=== PATIENT | male | born 1955 | race Caucasian/White ===

== ENCOUNTER → 2024-10-24 | Outpatient (CLI) | payer BC, SELFPAY ==
[2024-10-24 07:51] LABS: Collection Type, Urine Clean Catch
[2024-10-24 08:33] LABS: Basophils # (Auto) 0.1 Thou/mm3 (0.0-0.2); Basophils % (Auto) 1 % (0-2.5); Eosinophils # (Auto) 0.2 Thou/mm3 (0.0-0.5); Eosinophils % (Auto) 3 % (0-10); Hematocrit 44.5 % (41.0-53.0); Hemoglobin 14.6 g/dL (13.5-16.0); Immature Granulocytes % (Auto) 0 % (0-0); Immature Granulocytes Auto 0.02 Thou/mm3 (0.00-0.00); Lymphocytes # (Auto) 1.4 Thou/mm3 (1.0-4.8); Lymphocytes % (Auto) 23 % (10-50); Mean Corpuscular HGB Conc 32.8 g/dl (31.0-37.0); Mean Corpuscular Hemoglobin 29.3 pg (25.0-35.0); Mean Corpuscular Volume 89 fL (80-100); Monocytes # (Auto) 0.7 Thou/mm3 (0.0-0.8); Monocytes % (Auto) 12 % (0-12); Neutrophils # (Auto) 3.7 Thou/mm3 (1.8-7.7); Neutrophils % (Auto) 61 % (37-80); Nucleated Red Blood Cell % 0 /100 WBC (0); Platelet Count 243 Thou/mm3 (140-440); RDW Standard Deviation 45.2 fL (35.1-43.9); Red Blood Count 4.98 Miln/mm3 (4.50-5.90); White Blood Count 6.1 Thou/mm3 (3.8-10.6)
[2024-10-24 08:39] LABS: Bilirubin,Urine Negative (Negative); Blood,Urine Negative (Negative); Clarity,Urine Clear (Clear/Hazy); Color,Urine Yellow (Lt Yel-Yel); Culture Indicated,Urine Not Indicated; Glucose, Urine Negative (Negative); Hyaline Casts,Urine < 1 /hpf (0-1); Ketones,Urine Negative (Negative); Leukocyte Esterase,Urine Negative (Negative); Nitrite,Urine Negative (Negative); Protein,Urine Negative (Neg - Trace); RBC,Urine 3 /hpf (0-3); Specific Gravity,Urine 1.022 (1.001-1.035); Squamous Epithelial Cell,Urine < 1 /hpf (0-5); Urobilinogen,Urine Negative mg/dL (0.0-1.0); WBC,Urine 2 /hpf (0-5)
[2024-10-24 08:46] LABS: Creatinine MALB Rnd Ur 168 mg/dL (30-125); Microalbumin Creat Ratio 11 mg/gCrea (<30); Microalbumin, Random Urine 18 mg/L (0-300)
[2024-10-24 08:50] LABS: Vitamin D 25 Hydroxy Total 15.9 ng/mL (7.3-40.2)
[2024-10-24 08:58] LABS: Alanine Aminotransferase 17 U/L (10-49); Albumin, Serum 4.5 gm/dL (3.4-4.8); Alkaline Phosphatase 111 U/L (46-116); Anion Gap 9 (7-16); Aspartate Amino Transferase 12 U/L (0-34); BUN/Creatinine Ratio 16 Ratio (12-20); Bilirubin,Total 0.7 mg/dL (0.3-1.2); Blood Urea Nitrogen 16 mg/dL (9-23); Calcium 9.8 mg/dL (8.3-10.6); Calcium (Corrected) 9.8 mg/dL (8.5-10.1); Carbon Dioxide 27.2 mMol/L (20.0-31.0); Cardiac Risk Estimate 3.9 RATIO (4.0-6.7); Chloride 104 mMol/L (98-107); Cholesterol 259 mg/dL (132-200); Globulin 2.2 gm/dL (2.3-3.5); Glucose 157 mg/dL (74-106); HDL Cholesterol 67 mg/dL (40-60); LDL Cholesterol,Calculated 144 mg/dL (0-130); Osmolality,Calculated 283 (275-295); Potassium 4.4 mMol/L (3.4-5.1); Sodium 140 mMol/L (136-145); Thyroid Stimulating Hormone 2.11 uIU/mL (0.55-4.78); Total Protein 6.7 gm/dL (5.7-8.2); Triglycerides 238 mg/dL (30-150); Troponin I < 0.020 ng/mL (0.0-0.045); eGFR > 60 See Note
[2024-10-24 12:10] LABS: Glucose Estimated Average 137 mg/dL (80-131); Hemoglobin A1C 6.4 % Hgb (4.8-6.0)
== END | disposition home or self-care (01) ==
PROVIDERS: PCP Family Medicine; Referring Provider Registered Nurse; Visit Provider Registered Nurse
DX: R42 Dizziness and giddiness (principal); E11.65 Type 2 diabetes mellitus with hyperglycemia; I10 Essential (primary) hypertension; I25.10 Atherosclerotic heart disease of native coronary artery without angina pectoris
CPT/HCPCS: 36415; 80053; 80061; 81001; 82043; 82306; 82570; 83036; 84443; 84484; 85025

== ENCOUNTER 2024-12-05 07:27 | Day surgery (SDC) | payer BC, SELFPAY ==
--- NOTE | 2024-12-02 07:00 | EKG_ITS ---
[facility] Test Date: 2024-12-02 Pat Name: HE SEVILLA Department: Room: - Gender: Male [employer] Operator: DWIGHT VEGA : 1955 Requested By: Yimi Boykin Order Number: [id number] Reading MD: Yimi Boykin Measurements Intervals [place] Rate: 61 P: 41 CA: 207 QRS: 57 QRSD: 145 T: 36 QT: 444 QTc: 449 Interpretive Statements SINUS RHYTHM RIGHT BUNDLE BRANCH BLOCK Compared to ECG 02/21/2023 11:45:37 First degree AV block no longer present /[id number]/[id number]
[2024-12-02 17:57] LABS: Basophils # (Auto) 0.1 Thou/mm3 (0.0-0.2); Basophils % (Auto) 1 % (0-2.5); Eosinophils # (Auto) 0.2 Thou/mm3 (0.0-0.5); Eosinophils % (Auto) 4 % (0-10); Hematocrit 42.3 % (41.0-53.0); Hemoglobin 13.9 g/dL (13.5-16.0); Immature Granulocytes % (Auto) 0 % (0-0); Immature Granulocytes Auto 0.01 Thou/mm3 (0.00-0.00); Lymphocytes # (Auto) 1.8 Thou/mm3 (1.0-4.8); Lymphocytes % (Auto) 27 % (10-50); Mean Corpuscular HGB Conc 32.9 g/dl (31.0-37.0); Mean Corpuscular Hemoglobin 29.1 pg (25.0-35.0); Mean Corpuscular Volume 89 fL (80-100); Monocytes # (Auto) 0.9 Thou/mm3 (0.0-0.8); Monocytes % (Auto) 14 % (0-12); Neutrophils # (Auto) 3.7 Thou/mm3 (1.8-7.7); Neutrophils % (Auto) 55 % (37-80); Nucleated Red Blood Cell % 0 /100 WBC (0); Platelet Count 247 Thou/mm3 (140-440); RDW Standard Deviation 43.9 fL (35.1-43.9); Red Blood Count 4.78 Miln/mm3 (4.50-5.90); White Blood Count 6.8 Thou/mm3 (3.8-10.6)
[2024-12-02 18:02] LABS: Partial Thromboplastin Time 27.9 Seconds (22.0-36.0)
[2024-12-02 18:18] LABS: Anion Gap 9 (7-16); BUN/Creatinine Ratio 16 Ratio (12-20); Blood Urea Nitrogen 19 mg/dL (9-23); Calcium 10.1 mg/dL (8.3-10.6); Carbon Dioxide 28.9 mMol/L (20.0-31.0); Chloride 103 mMol/L (98-107); Creatinine (Component) 1.2 mg/dL (0.6-1.3); Glucose 112 mg/dL (74-106); Osmolality,Calculated 284 (275-295); Potassium 4.2 mMol/L (3.4-5.1); Sodium 141 mMol/L (136-145); eGFR > 60 See Note
[2024-12-05] VITALS (14 sets, daily range): BP systolic 132–162; BP diastolic 62–98; PULSE 56–68; RESP 11–19; TEMP 36.4–36.7; O2SAT 63–97; BMI 32.4
[2024-12-05] MEDS: SODIUM CHLORIDE 0.45 % 500 ML 100 ML IV (08:17)
--- NOTE | 2024-12-05 13:47 | PC.NURSE ---
1300 patient is awake, alert, breathing unlabored, s/p LHC under IV sedation, dressing to right wrist dry with no bleeding or hematoma, report received form Arabella GONSALES. patient to be discharged home after 1331 (4hr recovery). 1343 patient is awake, alert, breathing unlabored, no bleeding noted to right wrist, discharge instructions given to patient and son Gabino, patient discharged home in wheelchair with all belongings.
--- NOTE | 2024-12-05 18:46 | ESOP_ITS ---
Cardiac Cath Procedure Procedure Name Date of procedure: 12/05/2024 TOWER TECHNICIAN: Yimi Boykin MD PROCEDURE PERFORMED: 1. Left heart cardiac catheterization including right, left coronary angiograms and left ventriculogram 2. Ultrasound-guided access of the right radial artery 3. Conscious sedation for 30 minutes. 4. DFR or diastolic flow reserve measurement of the first diagonal artery - CPT code - 56673 Procedure Narrative HISTORY AND INDICATIONS: A 69-year-old male with a past medical history of CAD status post PCI to the mid LAD in May 2023 after NSTEMI, moderate 60 to 70% ostial disease of the small to medium size diagonal 1, type 2 diabetes mellitus, essential hypertension, history of alcohol abuse, depression, obesity, obstructive sleep apnea, history of cervical spine fracture status post fusion in the , war came into the cardiac Research Administrator for an elective left heart cardiac catheterization. Patient did have a recent stress test which was negative but patient still continued to complain of worsening chest discomfort or shortness of breath at rest and with exertion especially after he climbs stairs. Given his history of previously moderate disease in the diagonal and CAD patient was recommended left heart cardiac catheterization.Patient was explained the risk benefits and alternatives of performing a left heart cardiac catheterization including the risk of bleeding, heart attack, stroke and in detail and the agreeable for the procedure. Consent signed, placed in the chart and H&P updated. DESCRIPTION OF PROCEDURE: The patient was brought to the cardiac catheterization lab and all asceptic precautions were followed. Patient was given 1 Mg of Versed and 50 mcg of fentanyl for moderate conscious sedation. 2 mL of lidocaine was given in the right wrist. The right radial artery was accessed via the ultrasound guidance as well as micropuncture technique. A 6 [place] glide sheath was introduced. We then used a 5 [place] TIG 4 catheter to perform the left and right coronary angiograms as well as a left ventriculogram which showed the following findings. 1. Left ventricular ejection fraction was normal at 60 to 65% without any regional wall motion abnormalities. LVEDP was normal at 12 mmHg. There was no significant transvalvular aortic gradient. 2. Right dominant circulation 3. Left main artery is a large-caliber vessel without any significant stenosis. 4. LAD is a large sized artery with patent stent in the mid LAD, mild 20% disease in the proximal as well as the mid to distal LAD. There is a small to medium size diagonal 1 with 70% ostial stenosis but good JEREMY-3 flow was noted. Rest of the diagnosis did not show any major disease. 5. LCx is a large sized artery with medium OM1 and small OM2 without any significant disease. 6. RCA is a large artery with medium RPDA and RPL without any significant disease. Intervention: Given the patient's moderate to severe disease in the ostial diagonal 1 and with chest discomfort and shortness of breath on exertion decision was made to per form diastolic flow reserve measurement for the diagonal. Patient did have an IFR done in May 2023 which was negative at 0.95 and hence the decision was again made to repeat DFR. Patient was given additional 6 units of heparin and ACT was measured and it was greater than 250 during the entire procedure. Patient already is on aspirin 81 mg once daily and Plavix 75 mg once daily. A 6 [place] EBU 3.5 catheter was used to engage the left main artery. We then used a comet wire and flush the entire system and equalized the DFR in the left main. We then crossed the lesion in the ostial diagonal and check the DFR at 3 times or diastolic flow reserve and it was negative between 0.92 and 0.96. No significant change from the DFR value previously and patient still continued to have JEREMY-3 flow in the diagonal 1. Procedure was completed without any complications. All the interventional equipment was removed and final images were obtained. A radial band was used to achieve the hemostasis of the right radial artery access. Patient will be monitored in the cardiac Research Administrator for the next 2 to 3 hours and will be discharged home later today if hemodynamically stable. Patient recommended to follow-up with me in the office within 7 days. Complications: None Specimens: None Blood loss: Estimated 5-10 ml Summary/findings: 1. Unstable Angina: LHC showed moderate 70% stenosis of the ostial diagonal 1. DFR of the diagonal was negative between 0.92 and 0.96. Mid LAD stent was patent. There was mild 20% disease in the proximal as well as the mid to distal LAD. Rest of the coronaries showed no significant obstruction 2. LVEF was normal at 60-65% and normal LVEDP of 12 mmHg. No transvalvular aortic gradient. Recommendations: 1. Recommended aggressive risk factor modification and aggressive medical treatment 2. Recommended no lifting more than 5 pounds for 7 days and follow up in my office in 7 days. Yimi Boykin MD Interventional Cardiology.
== END 2024-12-05 13:43 | disposition home or self-care (01) ==
PROVIDERS: PCP Family Medicine; Referring Provider Internal Medicine Cardiovascular Disease; Visit Provider Internal Medicine Cardiovascular Disease
PROC: (CPT 93458; principal; 2024-11-17 13:00)
DX: I25.110 Atherosclerotic heart disease of native coronary artery with unstable angina pectoris (principal); E11.9 Type 2 diabetes mellitus without complications; E66.9 Obesity, unspecified; G47.33 Obstructive sleep apnea (adult) (pediatric); I10 Essential (primary) hypertension; I25.2 Old myocardial infarction; Z95.5 Presence of coronary angioplasty implant and graft; Z98.1 Arthrodesis status; Z68.32 Body mass index [BMI] 32.0-32.9, adult
CPT/HCPCS: 93458; 36415; 80048; 85025; 85347; 85610; 85730; 93005; 99152; 99153; A4649; C1769; C1887; C1894; J0171; J0461; J1643; J2250; J2310; J2371; J3010; J3490; J7040; Q9967; J2305